=== PATIENT | female | born 1975 | race Caucasian/White ===

== ENCOUNTER 2019-07-29 07:32 | Day surgery (SDC) | payer MEDICAID ==
[~2019-07-29 07:32] MED LIST: Cefuroxime 10 MG/ML SYRINGE EYELF SCH; Lidocaine 1% PF 2 ML SDV INJECT SCH; Pilocarpine 4% Ophth Soln 15 ML Bot EYELF SCH; Polymyxin B/Trimethoprim 10 ML Bottle EYELF SCH
--- NOTE | 2019-07-29 07:53 | PCM.PREANE ---
Preanesthetic Assessment - Anesthesia/Transfusion/Family Hx Anesthesia History: No Prior Anesthesia Family History of Anesthesia Reaction: No Transfusion History: No Prior Transfusion(s) - Review of Systems General: No Symptoms Pulmonary: No Symptoms Cardiovascular: No Symptoms Gastrointestinal: No Symptoms Neurological: Headache - Physical Assessment NPO Status Date: 07/28/19 NPO Status Time: 19:00 Height: 1.7 m Weight: 94.347 kg ASA Class: 2 Mental Status: Alert & Oriented x3 Airway Class: Mallampati = 2 Dentition: Reports: Normal Dentition Thyro-Mental Finger Breadths: 3 Mouth Opening Finger Breadths: 3 ROM/Head Extension: Full Lungs: Clear to Auscultation, Normal Respiratory Effort Cardiovascular: Regular Rate, Regular Rhythm - Allergies Allergies/Adverse Reactions: Allergies Allergy/AdvReac Type Severity Reaction Status Date / Time amoxicillin Allergy Cannot Verified 07/28/19 11:50 Remember Penicillins Allergy Cannot Verified 07/28/19 11:50 Remember Sulfa (Sulfonamide Allergy Cannot Verified 07/28/19 11:50 Antibiotics) Remember - Blood Blood Available: No Product(s) Available: None - Acknowledgements Anesthesia Type Planned: MAC Pt an Appropriate Candidate for the Planned Anesthesia: Yes Alternatives and Risks of Anesthesia Discussed w Pt/Guardian: Yes Pt/Guardian Understands and Agrees with Anesthesia Plan: Yes PreAnesthesia Questionnaire - HOME MEDS Home Medications: Home Meds Ascorbic Acid [Vitamin C] 500 mg PO DAILY 07/28/19 [History] Cholecalciferol (Vitamin D3) [Vitamin D3] 5,000 unit PO DAILY 07/28/19 [History] InFLIXimab [Remicade] 1 dose IV Q30D 07/28/19 [History] Multivitamin [Poly-Vitamin] 1 tab PO DAILY 07/28/19 [History] mycophenolate mofetiL [Mycophenolate Mofetil] 1,500 mg PO BID 07/28/19 [History] predniSONE [Prednisone] 20 mg PO DAILY 07/28/19 [History] - CURRENT (IN HOUSE) MEDS Current Meds: Current Medications Brimonidine Tartrate (Alphagan 0.2% Ophth Soln) 0 ml EYELF ASDIRECTED RAMILA Stop: 07/29/19 18:00 Cefuroxime Sodium (Zinacef) 0 mg EYELF ASDIRECTED RAMILA Stop: 07/29/19 18:00 Lidocaine HCl (Xylocaine-Mpf 1%) 0 ml INJECT ASDIRECTED RAMILA Stop: 07/29/19 18:00 Ofloxacin (Ocuflox 0.3% Ophth Soln) 0 ml EYELF ASDIRECTED RAMILA Stop: 07/29/19 18:00 Phenylephrine HCl (Mateo-Synephrine 2.5% Ophth Soln) 0 ml EYELF ASDIRECTED RAMILA Stop: 07/29/19 18:00 Pilocarpine HCl (Pilocar 4% Ophth Soln) 0 ml EYELF ASDIRECTED RAMILA Stop: 07/29/19 18:00 Tetracaine HCl (Tetracaine 0.5% Steri-Unit Ivanna) 0 ml EYEBOTH ASDIRECTED RAMILA Stop: 07/29/19 18:00 Tropicamide (Mydriacyl 1% Ophth Soln) 0 ml EYELF ASDIRECTED RAMILA Stop: 07/29/19 18:00
[2019-07-29] MEDS: Ofloxacin 0.3% Ophth Soln 5 ML Bottle EYELF SCH ×3 (08:15→10:09)
[2019-07-29] MEDS: Brimonidine 0.2% Ophth Soln 5 ML Bottle EYELF SCH ×3 (08:19→10:09)
[2019-07-29] MEDS: Phenylephrine 2.5% Ophth Soln 2 ML Bot EYELF SCH ×5 (08:23→09:46)
[2019-07-29] MEDS: Tropicamide 1% Ophth Soln 15 ML Bottle EYELF SCH ×4 (08:27→09:18)
[2019-07-29] MEDS: Tetracaine HCl/PF 0.5% 4 ML Bottle EYEBOTH SCH ×2 (09:29→09:54)
--- NOTE | 2019-07-29 10:10 | PCM48HPAN ---
Post Anesthesia Note - EVALUATION WITHIN 48HRS OF ANESTHETIC Vital Signs in Normal Range: Yes Patient Participated in Evaluation: Yes Respiratory Function Stable: Yes Airway Patent: Yes Cardiovascular Function Stable: Yes Hydration Status Stable: Yes Pain Control Satisfactory: Yes Nausea and Vomiting Control Satisfactory: Yes Mental Status Recovered: Yes Vital Signs: Last Vital Signs Temp 37.4 C 07/29/19 07:35 Pulse 89 07/29/19 07:35 Resp 16 07/29/19 07:35 BP 136/87 07/29/19 07:35 Pulse Ox 97 07/29/19 07:35
== END 2019-07-29 10:20 | disposition home or self-care (01) ==
LOC: JD.SDS 07:32
PROVIDERS: ATTEND Ophthalmology
DX: H25.812 Combined forms of age-related cataract, left eye (principal); H26.491 Other secondary cataract, right eye; H35.40 Unspecified peripheral retinal degeneration; H16.223 Keratoconjunctivitis sicca, not specified as Sjogren's, bilateral; H16.103 Unspecified superficial keratitis, bilateral; H30.893 Other chorioretinal inflammations, bilateral; H21.81 Floppy iris syndrome; H35.712 Central serous chorioretinopathy, left eye; H21.542 Posterior synechiae (iris), left eye; F41.9 Anxiety disorder, unspecified; Z96.1 Presence of intraocular lens; Z88.0 Allergy status to penicillin; Z88.2 Allergy status to sulfonamides; Z79.899 Other long term (current) drug therapy
CPT/HCPCS: 66762; 66984; J0697; J2001; A9270-GY; C1780